=== PATIENT | male | born 1960 | race Caucasian/White ===

== ENCOUNTER 2021-10-04 23:53 | Emergency (ER) | payer OTHER ==
[~2021-10-04] VITALS: Ht 170.2 cm; Wt 77.1 kg
[~2021-10-04 23:53] MED LIST: ADVIL200 M1 PO; ASPIRIN EC81 MG PO; CEFDINIR300 MG PO; COREG 6.25MG6.25 MG PO; ENTRESTO 24 MG1 EACH PO; FUROSEMIDE 40MG40 MG PO; IMDUR 30MG TABL30 MG PO; LIPITOR40 MG PO; NITROGLYCERIN0.4 MG SL; POTASSIUM CHLO20 ME2 PO; ZESTRIL5 MG PO
[2021-10-05 00:49] LABS: BASOPHIL 0.5 % (0-2); EOSINOPHIL 1.5 % (0-5); HCT 43.2 % (42.0-52.0); HGB 14.1 g/dl (13.2-18.0); LYMPHOCYTE 11.2 % (15-48); MCH 28.9 pg (25.0-31.0); MCHC 32.6 g/dL (32.0-36.0); MCV 88.5 fL (78.0-100.0); MONOCYTE 14.2 % (0-12); MPV 9.1 fL (6.0-9.5); NEUTROPHIL 72.3 % (41-80); NRBC 0; PLT 311 K/uL (150-400); RBC 4.88 M/uL (4.70-6.00); RDW 13.5 % (11.5-14.0); WBC 15.5 K/uL (4.0-10.5)
[2021-10-05 00:56] LABS: INR 1.16 (0.9-1.2); PROTHROMBIN TIME 14.2 SECONDS (11.8-13.4)
[2021-10-05 00:57] LABS: PTT 28.7 SECONDS (24.4-34.7)
[2021-10-05 00:59] LABS: D-DIMER 0.64 ug/mLFEU (0.00-0.41)
[2021-10-05 01:21] LABS: ALBUMIN 2.6 g/dL (3.4-5.0); BILIRUBIN - TOTAL 1.1 mg/dL (0.2-1.0); BUN/CREAT RATIO (CALC) 19.8 RATIO; C-REACTIVE PROTEIN 16.9 mg/dL (<=0.90); CREATININE 0.91 mg/dL (0.67-1.17); FT4 (FREE T4) 1.4 ng/dL (0.76-1.46); GLOBULIN (CALCULATION) 4.4 g/dL; MAGNESIUM 1.9 mg/dL (1.8-2.4); PHOSPHORUS 3.1 mg/dL (2.6-4.7); POTASSIUM 3.9 mmol/L (3.5-5.1)
[2021-10-05 01:28] LABS: CORONAVIRUS 2019 SARS-COV-2 NEGATIVE (NEGATIVE); INFLUENZA A NAA NEGATIVE (NEGATIVE)
[2021-10-05 02:14] LABS: LACTIC ACID 2.9 mmol/L (0.4-1.9)
[2021-10-05 04:55] LABS: BILIRUBIN NEGATIVE (NEGATIVE); BLOOD TRACE-INTACT Ery/uL (NEGATIVE); CLARITY CLEAR (CLEAR); COLOR YELLOW (YELLOW); GLUCOSE (U) NORMAL (NORMAL); LEUKOCYTES NEGATIVE Leu/uL (NEGATIVE); NITRITE NEGATIVE (NEGATIVE); PROTEIN NEGATIVE (NEGATIVE); SPECIFIC GRAVITY >=1.030 (1.001-1.030); UROBILINOGEN 0.2 mg/dL (0.2-1.0); pH 5.5 (5.0-9.0)
[2021-10-05 05:12] LABS: BACTERIA TRACE
[2021-10-05 07:10] LABS: AMPHETAMINES POSITIVE (NEGATIVE); BARBITURATES NEGATIVE (NEGATIVE); ECSTASY (MDMA) POSITIVE (NEGATIVE); MARIJUANA (THC) NEGATIVE (NEGATIVE); METHADONE NEGATIVE (NEGATIVE); OPIATES POSITIVE (NEGATIVE)
[2021-10-05 07:11] LABS: OXYCODONE NEGATIVE (NEGATIVE)
[2021-10-05] MEDS ORDERED: MEDROL 4MG DOSEP4 MG PO (10:34)
== END 2021-10-05 10:50 | disposition home or self-care (01) ==
LOC: FER 23:53
PROVIDERS: Emergency Medicine Emergency Medical Services
DX: M60.9 Myositis, unspecified (principal); M79.661 Pain in right lower leg; M79.662 Pain in left lower leg; M25.571 Pain in right ankle and joints of right foot; M25.572 Pain in left ankle and joints of left foot; M79.671 Pain in right foot; M79.672 Pain in left foot; I25.2 Old myocardial infarction; I10 Essential (primary) hypertension; Z88.8 Allergy status to other drugs, medicaments and biological substances; Z79.899 Other long term (current) drug therapy; Z20.822 Contact with and (suspected) exposure to COVID-19
CPT/HCPCS: 36415; 71045; 72131; 75635; 80053; 80305; 81001; 82550; 83605; 83735; 83880; 84100; 84145; 84439; 84443; 84484; 85025; 85379; 85610; 85730; 86140; 93005; 93970; J1100; J1885; J2270; J2405; J7030; Q9967; U0002

== ENCOUNTER → 2022-06-03 | Day surgery (SDC) | payer MEDICARE, OTHER ==
[~2022-06-03] VITALS: Ht 170.2 cm; Wt 71.7 kg
[~2022-06-03] MED LIST changes: +LOPRESSOR25 MG PO; +MEDROL 4MG DOSEP4 MG PO; +NORCO 5-325 TA1 EACH PO
[2022-06-03 10:21] LABS: HCT 38.1 % (42.0-52.0); HGB 12.8 g/dl (13.2-18.0); MCH 30.2 pg (25.0-31.0); MCHC 33.6 g/dL (32.0-36.0); MCV 89.9 fL (78.0-100.0); MPV 8.9 fL (6.0-9.5); RBC 4.24 M/uL (4.70-6.00); RDW 13.4 % (11.5-14.0); WBC 6.5 K/uL (4.0-10.5)
[2022-06-03 11:15] LABS: CREATININE 0.95 mg/dL (0.67-1.17); POTASSIUM 3.7 mmol/L (3.5-5.1)
== END | disposition home or self-care (01) ==
LOC: FAS 09:54
PROVIDERS: Surgery
DX: I87.2 Venous insufficiency (chronic) (peripheral) (principal); C83.30 Diffuse large B-cell lymphoma, unspecified site; I11.0 Hypertensive heart disease with heart failure; I50.9 Heart failure, unspecified; I25.2 Old myocardial infarction; Z79.899 Other long term (current) drug therapy; Z88.8 Allergy status to other drugs, medicaments and biological substances
CPT/HCPCS: 36415; 71045; 76000; 80048; C1788; J0690; J1100; J1644; J1885; J2250; J2405; J2704; J3010

== ENCOUNTER 2022-06-15 15:17 | Emergency (ER) | payer MEDICARE, OTHER ==
[2022-06-15 15:50] LABS: BASOPHIL 0 % (0-2); EOSINOPHIL 1.2 % (0-5); HCT 36.4 % (42.0-52.0); LYMPHOCYTE 7.1 % (15-48); MCH 29.1 pg (25.0-31.0); MCV 88.3 fL (78.0-100.0); MONOCYTE 3.4 % (0-12); MPV 9.8 fL (6.0-9.5); NEUTROPHIL 84.4 % (41-80); NRBC 0; PLT 177 K/uL (150-400); RBC 4.12 M/uL (4.70-6.00); RDW 12.9 % (11.5-14.0); WBC 16.1 K/uL (4.0-10.5)
[2022-06-15 16:04] LABS: CREATININE 0.73 mg/dL (0.67-1.17); POTASSIUM 4.3 mmol/L (3.5-5.1)
[2022-06-15 16:11] LABS: INR 1.11 (0.9-1.2); PTT 25.9 SECONDS (24.9-34.6)
[2022-06-15 16:15] LABS: CORONAVIRUS 2019 SARS-COV-2 NEGATIVE (NEGATIVE); INFLUENZA A NAA NEGATIVE (NEGATIVE)
== END 2022-06-15 19:20 | disposition home or self-care (01) ==
LOC: FER 15:17
PROVIDERS: Nurse Practitioner Family
DX: R07.89 Other chest pain (principal); R06.02 Shortness of breath; I25.2 Old myocardial infarction; I10 Essential (primary) hypertension; Z20.822 Contact with and (suspected) exposure to COVID-19
CPT/HCPCS: 36415; 71046; 80048; 84484; 85025; 85610; 85730; 93005; U0002